=== PATIENT | male | born 1985 | race Caucasian/White ===

== ENCOUNTER → 2016-06-21 | Outpatient (CLI) | payer OTHER, BC ==
--- NOTE | 2016-06-21 15:55 | REP ---
LEFT WRIST, FOUR VIEWS: HISTORY: Injury. There is no acute fracture or dislocation. The joint spaces are normal in appearance. IMPRESSION: There is no acute fracture or dislocation. Signed by Vincent Mayer MD 06/21/2016 01:44 P
--- NOTE | 2016-06-21 22:57 | REP ---
LEFT HAND, FOUR VIEWS: There is no evidence of an acute fracture, dislocation, or intrinsic bone disease. IMPRESSION: No fracture or dislocation. Signed by Maximus Valladares MD 06/22/2016 04:48 P
== END ==
LOC: M LRY 12:54
PROVIDERS: ATTEND Nurse Practitioner Family
DX: S69.92XA Unspecified injury of left wrist, hand and finger(s), initial encounter (principal); X58.XXXA Exposure to other specified factors, initial encounter; Y92.89 Other specified places as the place of occurrence of the external cause; Y93.89 Activity, other specified; Y99.8 Other external cause status

== ENCOUNTER 2023-05-01 00:05 | Emergency (ER) | payer BC, OTHER ==
[~2023-05-01] VITALS: Ht 172.7 cm; Wt 97.1 kg
[2023-05-01 00:06] VITALS: BP 139/81; TEMP 100.5; O2SAT 95
[2023-05-01] MEDS ORDERED: ACET-841 PO (00:16)
[2023-05-01] MEDS ORDERED: IBUP-1114 PO (00:16)
[2023-05-01 01:19] LABS: RSV AMPLIFICATION NEGATIVE (NEGATIVE)
== END 2023-05-01 03:38 | disposition left against medical advice (07) ==
LOC: M ED 00:05
DX: Z53.21 Procedure and treatment not carried out due to patient leaving prior to being seen by health care provider (principal)